=== PATIENT | female | born 2000 | race Caucasian/White ===

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

== ENCOUNTER 2023-11-09 05:13 | Emergency (ER) | payer SELFPAY ==
[~2023-11-09] VITALS: Ht 157.5 cm; Wt 104.5 kg
[2023-11-09 05:17] VITALS: TEMP 97.9
[2023-11-09] MEDS ORDERED: Albuterol 0.083% Neb Soln 2.5 MG/3 ML UD IH ONE (05:30)
[2023-11-09] MEDS ORDERED: predniSONE 20 MG TAB PO ONE (05:30)
[2023-11-09] MEDS ORDERED: Albuterol 90 MCG/PUFF 8 GM MDI IH ONE (06:00)
[2023-11-09] MEDS ORDERED: PREDNISONE20 MG PO (06:10)
[2023-11-09 06:26] VITALS: BP 116/68; PULSE 89
== END 2023-11-09 06:27 | disposition home or self-care (01) ==
LOC: COL.ER 05:13
DX: J45.901 Unspecified asthma with (acute) exacerbation (principal)
CPT/HCPCS: J7512